=== PATIENT | female | born 1990 | race Caucasian/White ===

== ENCOUNTER 2016-12-05 10:46 | Inpatient (IN) | payer OTHER ==
[~2016-12-05] VITALS: Ht 172.7 cm; Wt 104.3 kg
[2016-12-13] MEDS ORDERED: Oxytocin 10 Unit/mL Inj IM PRN (07:25)
[2016-12-13] MEDS ORDERED: Sodium Chloride LOK Flush 10 mL Syringe IVFLUSH PRN (07:25)
[2016-12-13] MEDS ORDERED: Hemorrhage Kit, Post Partum XX ONE (07:25)
[2016-12-13] MEDS ORDERED: Ondansetron 2 mg/mL 2 mL Inj IVPUSH PRN ×2 (07:25→22:15)
[2016-12-13] MEDS ORDERED: Methylergonovine 0.2 mg/mL Inj IM PRN (07:25)
[2016-12-13] MEDS ORDERED: Carboprost 250 mCg/mL Inj IM PRN (07:25)
[2016-12-13] MEDS ORDERED: Oxytocin 30 Units/500 mL LR 30 UNITS in IV Premix 1 EACH IV PRN (07:25)
--- NOTE | 2016-12-13 08:05 | PCM.HPOB ---
Subjective Referring Provider: Admitting Physician: Tab Pham MD Primary Care Physician: Tab Pham MD Attending Physician: Tab Pham MD Chief Complaint induction History of Present History of Present Illness Ms. Gant is a 26 year old woman at 41 weeks 1 day gestation with an BUSHRA of 12/05/2016 based on LMP who presents to the [facility] for induction of labor and trial of labor after . She has had random cramping that she would not describe at true contractions. She has not had any leakage of fluid or bleeding. During this , she has had some trouble sleeping, and she takes Benadryl and melatonin nightly to help. She also has had pelvic muscle pain that worsens when she lays in certain positions. She was examined in the office yesterday and her cervix was 2 cm, 40% effaced, - 3 station, and high. Past Medical History Obstetrical History: History of a section in 2013 History of in 2016 During this , she transferred care at 25 weeks from [facility] Gynecologic History: Menarche at 12 years old Medical History: Depression, patient stopped taking fluoxetine 2-3 months ago Childhood asthma Surgical History: A knee surgery section [place] teeth removal Appendectomy Hx Tobacco Use: No Hx Alcohol Use: No Hx Substance Use: No Past Family History Family History Mother does not have diabetes mellitus Review of Systems Eyes: Denies: Blurred Vision, Double Vision Gastrointestinal: Denies: Diarrhea, Nausea, Vomiting Genitourinary: Denies: Dysuria Musculoskeletal: Denies: Swelling Neurological: Denies: Dizziness Hematologic: Denies: Abnormal bleeding Medications Home medications vitamin Benadryl and melatonin at bedtime Allergy Coded Allergies: No Known Allergies (Unverified , 12/12/16) Exam Vital Signs BP 116/79, HR 101 bpm Exam FHR baseline 140s with moderate variability and accelerations Constitutional: Well-developed, Well-nourished HEENT: Atraumatic, EOMI, Scleral Anicteric Lungs: Clear to Auscultation, Normal Air Movement Heart: Regular Rate/Rhythm, Normal S1, Normal S2, No Murmurs/Rubs/Gallops Abdomen: Gravid, Soft Extremities: Pulses Palpable x4, No Edema Neurological/Psychiatric: Alert, Oriented X3, Cooperative, No Acute Distress Neuro: Grossly Neurologically Intact, Cranial Nerves 3-12 nl, Normal Speech Labs/Diagnostics Maternal Blood Type: A (positive) Antibody Screen: negative Group B Strep Results: Negative Rubella: Immune Additional Information labs: blood type A positive, antibody negative, rubella immune, RPR nonreactive, HBsAg negative, HIV negative, hepatitis C negative, gonorrhea and chlamydia negative, GBS negative, 1 hour glucose tolerance test within normal limits OB Intrapartum Assessment/Plan Assessment 26 year old woman at 41 weeks 1 day gestation with an BUSHRA of 12/05/2016 based on LMP Depression Intrapartum plan 26 year old woman at 41 weeks 1 day gestation with an BUSHRA of 12/05/2016 based on LMP who presents to the [facility] for induction of labor and trial of labor after - Start induction of labor for post dates with Cervidil to ripen the cervix - After cervix changes, will use cervical balloon - When cervix ripens and is favorable, will start Pitocin - Continue to monitor FHR and vital signs Depression - Not currently taking medication - Continue to monitor Yary Walden DO Dec 13, 2016 08:05
[2016-12-13] MEDS ORDERED: Methylergonovine 0.2 mg/mL Inj IM ONE (09:39)
[2016-12-13 09:53] LABS: Mean Corpuscular Hemoglobin 29.1 pg (27.0-35.0); Mean Corpuscular Volume 86.7 fL (81-100)
--- NOTE | 2016-12-13 19:23 | HP ---
[address] [address] HISTORY AND PHYSICAL PATIENT: SONNY WORTHY : 1990 MR#: [id number] ADMIT: 12/13/2016 JOB ID: [id number] DATE: 12/13/2016 HISTORY OF PRESENT ILLNESS: The patient is a 26-year-old, 3, para 2, at 41 weeks and 1 day, being admitted for induction of labor because of post-term . The patient has had history of delivery followed by vaginal after , she desires another vaginal after delivery: Trial of labor. The care was complicated by a history of depression. She has been taking fluoxetine 40 mg p.o. daily. Attempt to change her on sertraline did not work well, and she also took fluoxetine in her prior . labs were reviewed. She is blood group and type: A-positive, rubella immune, varicella immune, GBS negative. SOCIAL HISTORY: Patient denies smoking, alcohol, illicit recreational drug use. FAMILY HISTORY: Noncontributory. ALLERGIES: NKDA. PHYSICAL EXAMINATION: Vital signs: Temperature 36.7, blood pressure 115/68, respiratory rate 16, pulse 73. General exam: Awake, alert, oriented x3. In no apparent distress. Today's weight is 104.5 kg. HEENT: PERRLA. Chest is clear. No adventitious sounds. Good respiratory effort. Cardiovascular: Regular rate and rhythm. Abdomen is gravid. Fundal height measuring 40 cm. Pelvic exam: The cervix is 2 cm dilated, 60% effaced, station -3. Membranes intact no vaginal discharge. Extremities: Trace pitting edema. DTRs 2+ bilaterally. heart rate is reactive, category 1, baseline 140 beats per minute, moderate variability. ASSESSMENT AND PLAN: This is a 26-year-old, 3, para 2, history of delivery with her 1st , prior history of vaginal after () being admitted at 41 weeks 1 day for induction of labor. She would like to have a trial of labor after again. Different methods of induction were discussed. The Cytotec is contraindicated. Continuous heart rate monitoring is started. Cervidil was placed to ripen the cervix. The risks and benefits were discussed with the patient. The plan is to proceed with placement of cervical ripening balloon and then start oxytocin as necessary. Pain management/epidural will be provided as per the patient's request. labs were sent.
[2016-12-13] MEDS ORDERED: Lactated Ringer's 500 ML IV ONE (22:14)
[2016-12-13] MEDS: Lactated Ringer's 1,000 ML IV PRN ×2 (22:14→23:03)
[2016-12-13] MEDS ORDERED: fentaNYL 2 mCg/mL-Bupiv 0.125% 100 ML EPIDURAL SCH (22:15)
[2016-12-13] MEDS ORDERED: fentaNYL-PF 50 mCg/mL 2 mL Inj IVPUSH PRN (22:15)
[2016-12-13] MEDS ORDERED: Atropine 1 mg/10 mL (Code) Syringe IVPUSH PRN (22:15)
[2016-12-13] MEDS ORDERED: EPHEDrine Sulfate 50 mg/mL Inj IVPUSH PRN (22:15)
--- NOTE | 2016-12-13 22:16 | PCM.HPANE ---
Patient Data Surgeon Admitting Provider:Tab Pham MD Attending Provider:Tab Pham MD Primary Care Physician:Tab Pham MD Other Provider:Andrew Mosley Anesthesia Reason for Visit Induction INDUCTION Ht/WT & BMI Body Mass Index Allergies Coded Allergies: No Known Allergies (Unverified , 12/12/16) Past Anesthesia History Anesthesia History: Denies:: Abnormal Airway, Anesthesia Reactions, Difficult Intubation, Fam Anesthesia Reaction, Fam Malignant Hypertherm, Malignant Hyperthermia History History of ENT Problems?: No HEENT History: Denies:: Abnormal Airway Cataracts Difficult Intubation Dysphagia Glaucoma Hearing Problem Sinus Problem TMJ Denture Type: None Teeth Condition: Within Normal Limits Hx of Heart Problems?: No Cardiovascular History: Denies:: AICD Abdominal Aortic Aneurism Atrial Fibrillation Cardiac Surgery Chest Pain Congestive Heart Failure Coronary Artery Disease Edema Heart Murmur Hypertension Irregular Heartbeat Pacemaker Peripheral Vascular Rheumatic Fever Thrombophlebitis Valvular Heart Disease Hx of Respiratory Problem?: No Respiratory History: Denies:: Asthma COPD Chest Surgery Cough Dyspnea Emphysema Hemoptysis Oxygen Administration Pneumonia Pulmonary Embolism Tuberculosis Use of C-PAP Machine Use of Inhalers / NEBS Hx Neurologic Problems?: No Neurological History: Denies:: Alzheimer's Disease CVA Dementia Dizziness Headaches Multiple Sclerosis Parkinson's Disease Peripheral Neuropathy Seizures TIA Hx of GI Problems?: No Gastrointestinal History: Denies:: Cirrhosis Diverticulitis Gall Bladder Disease Gastroesphageal Reflux Gastrointestinal Bleeding Heartburn Hepatitis Hiatal Hernia Liver Disease Rectal Bleeding Hx of Problems?: No Genitourinary History: Denies:: HX of Hemodialysis Kidney Stones Urinary Tract Infection HX of Peritoneal Dialysis: No Female Hx: Denies:: Currently Endometriosis Pelvic Inflammatory Problems with Breasts? Skin History: Denies:: History Skin Disorders? Pressure Ulcers Hx Musculoskeletal Problems?: No Musculoskeletal History: Denies:: Back Injury Degenerative Joint Fibromyalgia Joint Replacement Musculoskeletal Trauma Myasthenia Gravis Osteoarthritis Rheumatoid Arthritis Systemic Lupus Hx of Psycho/Social Problems?: No Psycho Social History: Denies:: Anxiety Bipolar Disorder Hx Depression Suicide Attempt Hx Surgeries?: No Hx Any Other Health Problems?: No Other History: Denies:: Cancer Endocrine Disease Hospitalization Thyroid Disease History Blood Transfusions: Denies:: Accept Blood Products? Blood Transfuse Reaction Blood Transfusions Hx Diabetes: No Hx Alcohol Use: NoHx Substance Use: No Smoking Status: Never Smoker Stop/Bang Risk Assessment Category Category 1A: Patient has history of documented sleep apnea, and HAS NOT received any narcotic, sedative or anesthesia administration during this stay. Category 1B: Patient has history of documented sleep apnea, and HAS received any narcotic , sedative or anesthesia administration during this stay Category 2: Patient has SUSPECTED Obstructive Sleep Apnea, and HAS received any narcotic , sedative or anesthesia administration during this stay. Category 3: Patient has SUSPECTED Obstructive Sleep Apnea and HAS NOT received narcotic, sedative or anesthesia administration during this stay. Category 4: Outpatient in Procedural Areas with known sleep apnea or who screen positive for High Risk via the STOP/BANG questionnaire. Exam Exam General Appearance: Alert, Oriented X3, Cooperative, No Acute Distress, Severe Distress HEENT/AIRWAY: MP 2, Neck Movement (from), Mouth Opening (wnl) Lungs: Clear to Auscultation, Normal Air Movement Heart: Regular Rate/Rhythm, Normal S1, Normal S2, No Murmurs/Rubs/Gallops Meds/Labs/Diagnostics Admission Meds Current Medications Dinoprostone (Cervidil Vaginal Insert) 10 mg ONCE ONCE VAGINAL Last administered on 12/13/16t 09:52; Start 12/13/16 at 07:25; Stop 12/13/16 at 07:38 ; Status DC Labs Test 12/13/16 09:40 White Blood Count 6.9th/mm3 (3.8-10.1) Red Blood Count 4.57mil/mm3 (3.90-5.20) Hemoglobin 13.3g/dL (12.0-15.6) Hematocrit 39.6% (35.0-46.0) Mean Corpuscular Volume 86.7fL (81-100) Mean Corpuscular Hemoglobin 29.1pg (27.0-35.0) Mean Corpuscular Hemoglobin Concent 33.6% (32.0-37.0) Red Cell Distribution Width 14.3% (12.3-15.4) Platelet Count 156bil/L (150-400) Plan Impression Patient chart reviewed, patient interviewed and anesthestic plan with risks, benefits, and alternatives discussed, and informed consent obtained. ASA Physical Status: ASA2 Mod Systemic Disease Anesthetic Plan: Epidural Bene/Risks/Altern/Consents: Yes HP Complete Prior to Induction: Yes Pilo Osborn MD Dec 13, 2016 22:16
--- NOTE | 2016-12-13 23:07 | PCM.ANEP1 ---
Post Anesthesia PACU Phase 1 Assessment Anesthetic Administered: Epidural Level of Alertness: Awake, talking VALDEZ's with Equal Strength: Yes Pain: Yes Nausea or Vomiting: No CV Function & Hydration Stable: Yes Airway Device: Oxygen Delivery: Room Air Lungs: Normal Air Movement PACU Phase 2 Assessment Complications: No Follow up Care: No Patient Instructions Provided: N/A Pilo Osborn MD Dec 13, 2016 23:07
[2016-12-14] MEDS: Sodium Chloride LOK Flush 10 mL Syringe IVFLUSH SCH ×3 (00:30→16:30)
[2016-12-14] MEDS: Lactated Ringer's 1,000 ML IV SCH ×3 (00:49→16:49)
[2016-12-14] MEDS ORDERED: Carboprost 250 mCg/mL Inj IM PRN (00:50)
[2016-12-14] MEDS ORDERED: Hemorrhage Kit, Post Partum XX ONE (00:50)
[2016-12-14] MEDS ORDERED: oxyCODONE-Acetamin 5-325 mg Tablet PO PRN (00:50)
[2016-12-14] MEDS ORDERED: LANOlin HPA 7 Gm Ointment TOPICAL PRN (00:50)
[2016-12-14] MEDS ORDERED: Oxytocin 10 Unit/mL Inj IM PRN (00:50)
[2016-12-14] MEDS ORDERED: Methylergonovine 0.2 mg/mL Inj IM PRN (00:50)
[2016-12-14] MEDS ORDERED: Oxytocin 30 Units/500 mL LR 30 UNITS in IV Premix 1 EACH IV PRN (00:50)
--- NOTE | 2016-12-14 01:17 | OP ---
[address] [address] OPERATIVE REPORT PATIENT: SONNY WORTHY : 1990 MR#: [id number] ADMIT: 12/13/2016 JOB ID: [id number] DATE OF SURGERY: 12/14/2016 SURGEON: PREOPERATIVE DIAGNOSIS(ES): A 26-year-old, 3, para 2, at 40 weeks and 1 day, post-dates induction of labor, trial of labor after delivery. POSTOPERATIVE DIAGNOSIS(ES): A 26-year-old, 3, para 3, post-term , vaginal after section. DELIVERY SUMMARY: The patient is a 26-year-old, 3, para 3 now, who was admitted to labor and delivery on December 13, 2016, for induction of labor because of post-dates . She was 41 weeks and 1 day . She had one prior history of delivery followed by . She wanted to have trial of labor after . The patient was examined at arrival to labor and delivery floor and she was 2 cm dilated, 50% effaced, station -3. Different methods of induction of labor were discussed. Consent was obtained, Cervidil vaginal insert was placed at 10 o'clock in the morning and removed at 10 p.m. At that time, the patient was 3-4 cm dilated, 70% effaced, station -2. Cook cervical ripening balloon was placed and came out one hour later. She had spontaneous rupture of membranes. She progressed to full dilation at 12:15 a.m. on December 14, 2016 and started pushing at the same time. The patient underwent spontaneous vaginal delivery at 12:35 a.m., delivered male with Apgars 7 at one minute and 9 at five minutes. Delayed cord clamping was provided for 60 seconds. Placenta was delivered five minutes later and was found to be intact with three-vessel cord and was discarded. Methergine 0.2 mg IM were given after delivery of the placenta for better hemostasis. Pitocin was started after delivery of the . The fundus was firm. The patient had a small first-degree midline vaginal laceration that was repaired with one [id number] 3-0 Vicryl suture. All sponges and instrument counts were correct x2 at the end of the delivery. The chemical processing laborer was present at delivery.
[2016-12-14] MEDS: Benzocaine (Dermoplast) 20% 60 Gm Spray TOPICAL PRN (02:57)
[2016-12-14] MEDS: Witch Hazel-Glycerin Pads TOPICAL PRN ×2 (02:57→20:44)
[2016-12-14] MEDS: Ascorbic Acid 500 mg Tablet PO SCH ×2 (09:11→20:44)
--- NOTE | 2016-12-14 10:51 | NUR ---
Social Work Note:Referral Received D/A/P: VERENICE received referral for social disarray concerns. INSTRUMENTATION AND CONTROL TECHNICIAN spoke with sheet metal work furnace installer Kim and davised that she would be up to evaluate Pt in approximately two hours. VERENICE Hernandez, MARTINA Addendum: 12/14/16 at 1440 by SANDEE BOYD SS INSTRUMENTATION AND CONTROL TECHNICIAN spoke with sheet metal work furnace installer Kim and was informed that no assessment would be needed in this case. VERENICE Hernandez, MARTINA
[2016-12-14 11:10] VITALS: BP 129/78; RESP 15
[2016-12-15] MEDS: Sodium Chloride LOK Flush 10 mL Syringe IVFLUSH SCH (00:30)
[2016-12-15] MEDS: Lactated Ringer's 1,000 ML IV SCH (00:49)
[2016-12-15] MEDS ORDERED: IBUP800T28 PO (06:24)
[2016-12-15] MEDS ORDERED: FERR-83 PO (06:24)
[2016-12-15] MEDS ORDERED: ASCO-294 PO (06:24)
[2016-12-15] MEDS ORDERED: DOCU-41 PO (06:24)
--- NOTE | 2016-12-15 06:55 | PCM.DIOB ---
Obstetrical Disch Instruction Dates of Hospitalization Date of Hospital Admission Dec 13, 2016 at 06:58 Providers Admitting Physician: Tab Pham MD Primary Care Physician: Tab Pham MD Attending Physician: Tab Pham MD Discharge Diagnosis Discharge Diagnosis You had a baby. Problems: Diet Discharge Diet: No restrictions Activity Discharge Activity-General: Pelvic Rest for 6 weeks, Balance rest and activity , Activity as pain allows, Activity as energy allows, No lifting >15 pounds for 2 weeks Dressing and Incisional Care Hygiene: May shower, NO bathtub, hot tub or whirlpool Additional Instructions Discharge Instructions Continue your vitamin. Please take the iron and vitamin c together for anemia. Iron can give you constipation so you have also been given a prescription for docusate to keep you regular. Be sure to follow up in 6 weeks at [facility]. Pelvic rest for 6 weeks (nothing per vagina including intercourse, tampons) If you have a fever greater than 100.4, please call [facility]. There is always someone hospital monitor to talk to. If you have an increase in bleeding, call [facility]. If you have a lot of bleeding suddenly, especially if you have symptoms of dizziness & weakness with it, get emergency help. If you start experiencing extreme depression, especially if you feel that you are a danger to yourself or your family, seek emergency help. You have been through a lot -- BE SURE TO TAKE CARE OF YOURSELF. You have been sent home with the following prescriptions: - Colace 100 mg twice a day as needed for constipation. - Ferrous sulfate 325 mg every day. - Vitamin C 500 mg every day. Take with iron. - Ibuprofen 800mg take 1 tab every 8 hours as needed for pain. Take with a meal. Follow-up in 6 [facility] with [facility]. Follow Up Plan Follow-up Provider (F9): Tab Pham MD Follow-up appointment: Weeks (6) Call your provider for: Fever or Chills, Shortness of breath, Heavy vaginal bleeding, Heavy bleeding, Epigastric pain, Excessive constipation, Vaginal discomfort, Red painful breasts, Other (painful swelling in your legs) Yary Walden DO Dec 15, 2016 06:25
[2016-12-15 07:09] LABS: Mean Corpuscular Hemoglobin 29.2 pg (27.0-35.0); Mean Corpuscular Volume 88.7 fL (81-100)
[2016-12-15] MEDS: Ascorbic Acid 500 mg Tablet PO SCH (07:19)
[2016-12-15] MEDS: Benzocaine (Dermoplast) 20% 60 Gm Spray TOPICAL PRN (07:35)
[2016-12-15] MEDS: Witch Hazel-Glycerin Pads TOPICAL PRN (07:35)
[2016-12-15 08:21] VITALS: BP 112/70; PULSE 72; RESP 18
--- NOTE | 2016-12-15 12:52 | PCM.DC.OB ---
Obstetrical Discharge Summary Date of Service Dec 15, 2016 Date of hospital admission Dec 13, 2016 at 06:58 Date of Discharge: Dec 15, 2016 Providers Admitting Physician: Tab Pham MD Primary Care Physician: Tab Pham MD Attending Physician: Tab Pham MD Diagnosis at Time of Discharge 26-year-old, 3, para 3, post-term , status post vaginal after section Problems: Invasive procedures Vaginal after section Date of Procedure: Dec 14, 2016 Brief History and Physical: From the history and physical performed by Dr. Walden on 12/13/16: Ms. Gant is a 26 year old woman at 41 weeks 1 day gestation with an BUSHRA of 12/05/2016 based on LMP who presents to the [facility] for induction of labor and trial of labor after . She has had random cramping that she would not describe at true contractions. She has not had any leakage of fluid or bleeding. During this , she has had some trouble sleeping, and she takes Benadryl and melatonin nightly to help. She also has had pelvic muscle pain that worsens when she lays in certain positions. She was examined in the office yesterday and her cervix was 2 cm, 40% effaced, - 3 station, and high. Hospital Course: 26-year-old, 3, para 3, post-term , status post vaginal after section on 12/14/16 at 00:35 - She was induced for post-term - She delivered a male with Apgars 7 and 9 - She had a small first degree laceration that was repaired - On day of discharge, she did not have any concerns. Her bleeding was light but slightly heavier in the morning when she first woke up. She did not have chest pain, dyspnea, dizziness, lightheadedness, or changes in her vision. She was ambulating and urinating without issue. She had mild cramping. On exam, she was awake, alert, and oriented, her heart was a regular rate and rhythm with no murmurs, rubs, or gallops, lungs were clear to auscultation, uterus was firm, and mild bilateral pedal edema without tenderness. Ascorbate Calcium (Vitamin C) 500 Mg Tablet 500 MG PO DAILY Prescribed by: YARY L WILLEM, DO Docusate Sodium (Colace) 100 Mg Capsule 100 MG PO BID PRN PRN For Constipation Prescribed by: YARY WALDEN DO Ferrous Sulfate (Ferrous Sulfate) 325 Mg Tablet 325 MG PO DAILY Prescribed by: YARY WALDEN DO Ibuprofen (Ibuprofen) 800 Mg Tablet 800 MG PO TID PRN PRN For Pain Prescribed by: YARY WALDEN DO copies to: Tab Pham MD ; [facility] Yary Walden DO Dec 15, 2016 12:52
== END 2016-12-15 09:40 | disposition home or self-care (01) | DRG 775 ==
LOC: FBC 12-13 06:58
PROVIDERS: ADMIT Legal Medicine; ATTEND Legal Medicine
PROC: 3E0P7GC Introduction of Other Therapeutic Substance into Female Reproductive, Via Natural or Artificial Opening (ICD-10-PCS; 2016-12-13)
PROC: 10E0XZZ Delivery of Products of Conception, External Approach (ICD-10-PCS; principal; 2016-12-14)
PROC: 0HQ9XZZ Repair Perineum Skin, External Approach (ICD-10-PCS; 2016-12-14)
DX: O48.0 Post-term pregnancy (principal); Z3A.41 41 weeks gestation of pregnancy; Z37.0 Single live birth; O99.344 Other mental disorders complicating childbirth; F32.9 Major depressive disorder, single episode, unspecified; O34.219 Maternal care for unspecified type scar from previous cesarean delivery; O70.0 First degree perineal laceration during delivery